=== PATIENT | female | born 1935 | race Caucasian/White ===

== ENCOUNTER 2022-09-09 07:36 | Outpatient (CLI) | payer MEDICARE ==
[2022-09-09] MEDS ORDERED: Iopamidol 300 61% 100 ML VIAL FS ONE (09:47)
== END 2022-09-09 07:37 | disposition home or self-care (01) ==
LOC: CSHCT 07:36
PROVIDERS: ATTEND Nurse Practitioner Family
DX: J18.9 Pneumonia, unspecified organism (principal); J98.4 Other disorders of lung
CPT/HCPCS: 71260